=== PATIENT | male | born 1960 | race Caucasian/White ===

== ENCOUNTER 2018-04-29 19:27 | Emergency (ER) | payer BC, MEDICAID ==
--- NOTE | 2018-04-29 20:16 | EDM.PDOC ---
ED HPI GENERAL MEDICAL PROBLEM - General Chief Complaint: Chest Pain Stated Complaint: CHEST PAIN/LT SIDE NUMBNESS Time Seen by Provider: 04/29/18 20:10 Source of Information: Reports: Patient, Old Records, RN History Limitations: Reports: No Limitations - History of Present Illness INITIAL COMMENTS - FREE TEXT/NARRATIVE: 58 yo male smoker presents with L arm and L leg numbness that began about 3 pm today while at home. Went to work for a few hrs and his sx's were not improving so came here. 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 He has some concurrent chest pain today that was worked up in the past and was not found to be cardiac related. He has multiple medical problems, but denies a personal hx of CAD or CVA. He has been advised in the past to take a baby aspirin daily, but he does not. Onset: Today Onset Date: 04/29/18 Onset Time: 15:00 Duration: Hour(s):, Constant Location: Reports: Chest, Upper Extremity, Left, Lower Extremity, Left Quality: Reports: Dull (chest pain), Other (arm and leg on left are described as numb, arm also described as feeling cold) Severity: Moderate Improves with: Reports: None Worsens with: Reports: None Context: Reports: Other (See HPI) Associated Symptoms: Reports: Chest Pain. 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: Other (see below) (none) Left Lower Chest Pain Score (Numeric/FACES): 9 - Related Data Allergies Allergy/AdvReac Type Severity Reaction Status Date / Time acetaminophen [From Vicodin] Allergy Cannot Verified 04/29/18 19:51 Remember hydrocodone [From Vicodin] Allergy Cannot Verified 04/29/18 19:51 Remember Iodinated Contrast- Oral and Allergy Abdominal Verified 04/29/18 19:50 IV Dye Pain [Iodinated Contrast Media - IV Dye] shellfish derived Allergy Abdominal Verified 04/29/18 19:50 Pain terfenadine [From Seldane] Allergy Anaphylactic Verified 04/29/18 19:50 Shock theophylline anhydrous Allergy Anaphylactic Verified 04/29/18 19:50 [From Alonso-Dur] Shock Home Meds: Home Meds Gabapentin [Neurontin] 1 tab PO TID 02/19/16 [History] DULoxetine HCl [Duloxetine HCl] 60 mg PO DAILY 04/29/18 [History] Ranitidine HCl [Ranitidine] 150 mg PO DAILY 04/29/18 [History] Past Medical History Musculoskeletal History: Reports: Fracture Neurological History: Reports: Other (See Below) Psychiatric History: Reports: Anxiety, Depression Oncologic (Cancer) History: Reports: Renal - Past Surgical History HEENT Surgical History: Reports: Other (See Below) Other HEENT Surgeries/Procedures: implant in right ear GI Surgical History: Reports: Hernia Repair/Other Male Surgical History: Reports: Other (See Below) Other Male Surgeries/Procedures: mass removal from left kidney Social & Family History - Tobacco Use Smoking Status *Q: Current Some Day Smoker Years of Tobacco use: 35 Packs/Tins Daily: 0.3 - Caffeine Use Caffeine Use: Reports: Coffee - Recreational Drug Use Recreational Drug Use: No ED ROS GENERAL - Review of Systems Review Of Systems: See Below Constitutional: Reports: No Symptoms HEENT: Reports: No Symptoms Respiratory: Reports: No Symptoms Cardiovascular: Reports: Chest Pain. Denies: Dyspnea on Exertion, Edema, Lightheadedness, Palpitations Endocrine: Reports: No Symptoms GI/Abdominal: Reports: No Symptoms : Reports: No Symptoms Musculoskeletal: Reports: No Symptoms Skin: Reports: No Symptoms Neurological: Reports: Numbness (L arm and L leg). Denies: Syncope Psychiatric: Reports: No Symptoms ED EXAM, GENERAL - Physical Exam Exam: See Below Exam Limited By: No Limitations General Appearance: Alert, WD/WN, No Apparent Distress, Other (appears older than his stated age.) Eye Exam: Bilateral Eye: Normal Inspection Ears: Normal External Exam, Normal Canal, Hearing Grossly Normal, Normal TMs Ear Exam: Bilateral Ear: Auricle Normal, Canal Normal, TM normal Nose: Normal Inspection, Normal Mucosa, No Blood Throat/Mouth: Normal Inspection, Normal Lips, Normal Oropharynx, Normal Voice, No Airway Compromise, Other (partially edentulous) Head: Atraumatic, Normocephalic Neck: Normal Inspection Respiratory/Chest: No Respiratory Distress, Lungs Clear, Normal Breath Sounds, No Accessory Muscle Use, Chest Non-Tender Cardiovascular: Regular Rate, Rhythm, No Edema GI/Abdominal: Normal Bowel Sounds, Soft, Non-Tender, No Distention Back Exam: Normal Inspection, Full Range of Motion. No: CVA Tenderness (R), CVA Tenderness (L) Extremities: Normal Inspection, Normal Range of Motion, Non-Tender, No Pedal Edema Neurological: Alert, Oriented, CN II-XII Intact, Normal Cognition, No Motor/ Sensory Deficits Psychiatric: Normal Affect, Normal Mood Skin Exam: Warm, Dry, Intact, Normal Color, No Rash EKG INTERPRETATION EKG Date: 04/29/18 Time: 19:45 Rhythm: NSR Rate (Beats/Min): 81 [place]: Normal P-Wave: Present QRS: Normal ST-T: Normal QT: Normal Comparison: No Change Course - Vital Signs Last Recorded V/S: Last Vital Signs Temp 36.4 C 04/29/18 19:45 Pulse 75 04/29/18 20:43 Resp 14 04/29/18 20:43 BP 154/99 H 04/29/18 20:43 Pulse Ox 98 04/29/18 20:43 - Orders/Labs/Meds Orders: Active Orders 24 hr Category Date Time Status Cardiac Monitoring [RC] .As Directed Care 04/29/18 19:34 Active EKG Documentation Completion [RC] ASDIRECTED Care 04/29/18 19:33 Active Acetaminophen [Tylenol Extra Strength] Med 04/29/18 22:23 Once 1,000 mg PO ONETIME ONE Sodium Chloride 0.9% [Saline Flush] Med 04/29/18 20:34 Active 10 ml FLUSH ASDIRECTED PRN Saline Lock Insert [OM.PC] Routine Oth 04/29/18 20:34 Ordered EKG 12 Lead [EK] Routine Ther 04/29/18 19:33 Ordered Medication Orders Sodium Chloride (Saline Flush) 10 ml FLUSH ASDIRECTED PRN PRN Reason: Keep Vein Open Last Admin: 04/29/18 21:00 Dose: 10 ml Labs: Laboratory Tests 04/29/18 04/29/18 Range/Units 20:27 20:27 WBC 9.0 (4.5-11.0) K/uL RBC 5.08 (4.30-5.90) M/uL Hgb 15.0 (12.0-15.0) g/dL Hct 45.8 (40.0-54.0) % MCV 90 (80-98) fL MCH 30 (27-31) pg MCHC 33 (32-36) % Plt Count 302 (150-400) K/uL Sodium 140 (140-148) mmol/L Potassium 4.2 (3.6-5.2) mmol/L Chloride 104 (100-108) mmol/L Carbon Dioxide 30 (21-32) mmol/L Anion Gap 5.8 (5.0-14.0) mmol/L BUN 14 (7-18) mg/dL Creatinine 1.1 (0.8-1.3) mg/dL Est Cr Clr Drug Dosing 73.77 mL/min Estimated GFR (MDRD) > 60 (>60) Glucose 92 (74-106) mg/dL Calcium 8.9 (8.5-10.1) mg/dL Troponin I < 0.017 (0.000-0.056) ng/mL Meds: Medications Generic Name Dose Route Start Last Admin Trade Name Freq PRN Reason Stop Dose Admin Sodium Chloride 10 ml 04/29/18 20:34 04/29/18 21:00 Saline Flush FLUSH 10 ml ASDIRECTED PRN Administration Keep Vein Open Discontinued Medications Generic Name Dose Route Start Last Admin Trade Name Freq PRN Reason Stop Dose Admin Aspirin 324 mg 04/29/18 20:26 04/29/18 20:46 Aspirin PO 04/29/18 20:27 324 mg ONETIME ONE Administration - Radiology Interpretation Free Text/Narrative:: Head CT scan-neg except for sinus dz CT Results Date: 04/29/18 Departure - Departure Time of Disposition: 22:24 Disposition: Home, Self-Care 01 Condition: Fair Clinical Impression: Atypical chest pain, Tobacco abuse, Extremity numbness Instructions: Coping with Quitting Smoking, Nonspecific Chest Pain, Easy-to- Read Referrals: Quinton Ch MD [Primary Care Provider] - Forms: ED Department Discharge Additional Instructions: Take aspirin 81 mg daily with a meal. No smoking. Acetaminophen as needed for pain relief. Recheck with your provider for follow up. Return if worse. - My Orders Last 24 Hours: My Active Orders 04/29/18 19:33 EKG Documentation Completion [RC] ASDIRECTED EKG 12 Lead [EK] Routine 04/29/18 19:34 Cardiac Monitoring [RC] .As Directed 04/29/18 20:34 Sodium Chloride 0.9% [Saline Flush] 10 ml FLUSH ASDIRECTED PRN Saline Lock Insert [OM.PC] Routine 04/29/18 22:23 Acetaminophen [Tylenol Extra Strength] 1,000 mg PO ONETIME ONE - Assessment/Plan Last 24 Hours: My Active Orders 04/29/18 19:33 EKG Documentation Completion [RC] ASDIRECTED EKG 12 Lead [EK] Routine 04/29/18 19:34 Cardiac Monitoring [RC] .As Directed 04/29/18 20:34 Sodium Chloride 0.9% [Saline Flush] 10 ml FLUSH ASDIRECTED PRN Saline Lock Insert [OM.PC] Routine 04/29/18 22:23 Acetaminophen [Tylenol Extra Strength] 1,000 mg PO ONETIME ONE
[2018-04-29] MEDS ORDERED: Aspirin 81 MG Tab.Chew PO ONE (20:26)
[2018-04-29] MEDS ORDERED: Sodium Chloride 0.9% 10 ML Syringe FLUSH PRN (20:34)
[2018-04-29 20:44] VITALS: BP 154/99
--- NOTE | 2018-04-29 21:28 | CRLCT ---
INDICATION: Left arm and left leg numbness for 30 minutes. TECHNIQUE: CT head without contrast. COMPARISON: None. FINDINGS: CSF spaces: Within normal limits for age. Brain parenchyma: The snyder-white differentiation is normal. No sign of mass, hemorrhage, or midline shift. Skull base and calvarium: No skull fracture. Mucosal thickening and patchy opacification within the ethmoid and sphenoid sinuses. IMPRESSION: Ethmoid and sphenoid sinus disease, otherwise unremarkable noncontrast head CT. Please note that all CT scans at this facility use dose modulation, iterative reconstruction, and/or weight-based dosing when appropriate to reduce radiation dose to as low as reasonably achievable. Dictated by Nato Zamora MD @ Apr 29 2018 9:25PM Signed by Dr. Nato Zamora @ Apr 29 2018 9:27PM
[2018-04-29] MEDS ORDERED: Acetaminophen 500 MG Tab PO ONE (22:23)
== END 2018-04-29 22:42 | disposition home or self-care (01) ==
LOC: JP.ED 19:27
DX: R07.89 Other chest pain (principal); R20.0 Anesthesia of skin; F17.210 Nicotine dependence, cigarettes, uncomplicated; Z88.9 Allergy status to unspecified drugs, medicaments and biological substances; Z79.899 Other long term (current) drug therapy
CPT/HCPCS: 36415; 70450; 80048; 84484; 85027; 93005; 99285; A9270